=== PATIENT | male | born 1950 | race Caucasian/White ===

== ENCOUNTER 2024-12-22 14:20 | Outpatient (REF) | payer MEDICARE, SELFPAY ==
[2024-12-22 16:03] LABS: Abs Immature Grans 0.24 10^3/uL (0.0-0.06); HCT 26.3 % (40.0-50.0); HGB 8.6 g/dL (13.5-17.5); Immature Grans % 2.4 %; MCH 32.2 pg (27.0-33.0); MCHC 32.7 % (32.0-36.0); MCV 99 fL (80-95); MPV 9.8 fL (8.0-11.0); Platelet Count 308 10^3/uL (130-400); RBC 2.67 10^6/uL (4.36-5.78); RDW 15.1 % (11.8-14.1); RDW-SD 53.6 fL; WBC 10.12 10^3/uL (4.4-10.8)
[2024-12-22 16:13] LABS: ALT 100 U/L (16-63); AST 97 U/L (15-37); Albumin 2.0 g/dL (3.4-5.0); Alkaline Phosphatase 125 U/L (46-116); Anion Gap 5.8 mmol/L (3-11); BUN 24 mg/dL (7-18); Bilirubin, Total 0.9 mg/dL (0.2-1.0); CO2 36.2 mmol/L (21.0-32.0); Calcium 8.3 mg/dL (8.5-10.1); Chloride 104 mmol/L (98-107); Glucose 133 mg/dL (74-106); Potassium 3.5 mmol/L (3.5-5.1); Sodium 146 mmol/L (136-145); Total Protein 5.1 g/dL (6.4-8.2)
== END 2024-12-22 14:21 | disposition home or self-care (01) ==
LOC: LBN 14:20
PROVIDERS: PCP Family Medicine; Visit Provider Nurse Practitioner Adult Health
DX: N17.9 Acute kidney failure, unspecified (principal)
CPT/HCPCS: 80053; 85025

== ENCOUNTER 2024-12-27 05:21 | Emergency (ER) | payer MEDICARE, SELFPAY ==
[2024-12-27] VITALS (10 sets, daily range): BP systolic 119–128; BP diastolic 60–72; PULSE 79–90; RESP 20; TEMP 36.8; O2SAT 95–99
--- NOTE | 2024-12-27 05:16 | ED.GENADUL_ITS ---
Discharge Plan Disposition Patient Disposition: [facility](SNF) Condition: Good Discharge Details Clinical Impression: Complication of Blanco catheter Primary Care Provider: Eitan Vásquez ED Provider: Christiana Franco Discharge Instructions Additional Instructions: Return to the emergency department for new or worsening symptoms, including worsening pain, or if the catheter is not draining after being flushed and replaced. HPI General Mode of arrival: EMS . Date/Time Provider Initiated Documentation: 12/27/24 05:37 . Limitations to Documentation: no limitations . Information obtained by: patient and old records reviewed . HPI Narrative: 74yo M presenting from [facility] for dislodged blanco catheter. He inadvertently pulled it out with the balloon inflated; had pain and bleeding afterwards. Nursing staff unable to replace blanco. He reports the pain and bleeding have both stopped. On ROS reports a mild cough for about a week, otherwise in his usual state of health. Review of Systems All systems reviewed & are unremarkable except as noted in HPI and below (Mild cough x one week) Exam Narrative Exam Narrative: General: Alert, well appearing, well nourished, in no acute distress. Head: Normocephalic, atraumatic Neck: Trachea midline, Neck supple. Cardiac: RRR Resp: No respiratory distress. CTAB. + cough Abd: Soft, non-distended, nontender : No suprapubic tenderness. Dried blood at urethral meatus. Extremities: No deformities. No peripheral edema. Medical Decision Making 74yo M presenting from [facility] for dislodged blanco catheter; nursing staff unable to replace blanco. Pain and bleeding have both stopped. Vital signs and physical exam reassuring on arrival. Scant dried blood at urethral meatus, otherwise normal exam, no suprapubic tenderness. Blanco replaced and drained yellow urine, some clots. Irrigated till clear. No indication for labs or imaging. Discharged back to nursing facility; discharge instructions and return precautions were reviewed with patient and sent to facilty. All questions were answered and he is in full agreement with the plan. PFSH All Active Problems (Updated 12/27/24 @ 05:53 by Christiana Franco MD) Complication of Blanco catheter (Acute) Social History Smoking risk assessment performed?: No
== END 2024-12-27 06:11 | disposition skilled nursing facility (03) ==
LOC: ER 05:55
PROVIDERS: Emergency Provider Student in an Organized Health Care Education/Training Program; PCP Family Medicine
DX: T83.021A Displacement of indwelling urethral catheter, initial encounter (principal)
CPT/HCPCS: 99283 ×2; 36415; 51702

== ENCOUNTER 2024-12-31 12:39 | Outpatient (REF) | payer MEDICARE, SELFPAY ==
[2024-12-31 13:46] LABS: COVID-19 PCR Negative (Negative); RSV PCR Negative (Negative)
== END 2024-12-31 12:40 | disposition home or self-care (01) ==
LOC: LBN 12:39
PROVIDERS: PCP Family Medicine; Visit Provider Nurse Practitioner Adult Health
DX: J06.9 Acute upper respiratory infection, unspecified (principal)
CPT/HCPCS: 87637

== ENCOUNTER 2025-01-13 11:24 | Outpatient (REF) | payer MEDICARE, SELFPAY ==
[2025-01-13 11:49] LABS: HCT 34.3 % (40.0-50.0); HGB 12.6 g/dL (13.5-17.5); MCH 37.6 pg (27.0-33.0); MCHC 36.7 % (32.0-36.0); MCV 102 fL (80-95); MPV 10.2 fL (8.0-11.0); Platelet Count 252 10^3/uL (130-400); RBC 3.35 10^6/uL (4.36-5.78); RDW 15.7 % (11.8-14.1); RDW-SD 59.3 fL; WBC 16.48 10^3/uL (4.4-10.8)
[2025-01-13 11:51] LABS: Glucose Negative (Negative)
[2025-01-13 12:01] LABS: RBC 20-50 HPF (0-2); WBC 20-50 HPF (0-5)
[2025-01-13 12:05] LABS: ALT 18 U/L (10-49); AST 19 U/L (<34); Albumin 3.2 g/dL (3.4-5.0); Alkaline Phosphatase 258 U/L (46-116); Anion Gap 6 mmol/L (3-11); BUN 21 mg/dL (9-23); Bilirubin, Total 0.80 mg/dL (0.2-1.2); CO2 33.0 mmol/L (20.0-31.0); Calcium 9.1 mg/dL (8.3-10.6); Chloride 102 mmol/L (98-107); Glucose 98 mg/dL (74-106); Potassium 4.0 mmol/L (3.5-5.1); Sodium 141 mmol/L (136-145); Total Protein 6.1 g/dL (5.7-8.2)
[2025-01-13 12:24] LABS: COVID-19 PCR Negative (Negative); RSV PCR Negative (Negative)
== END 2025-01-13 11:25 | disposition home or self-care (01) ==
LOC: LBN 11:24
PROVIDERS: PCP Family Medicine; Visit Provider Nurse Practitioner Adult Health
DX: R50.9 Fever, unspecified (principal); N17.9 Acute kidney failure, unspecified; J06.9 Acute upper respiratory infection, unspecified
CPT/HCPCS: 80053; 85027; 87077; 87637; 81003; 81015; 87086; 87186

== ENCOUNTER → 2025-01-22 03:50 | Outpatient (CLI) | payer MEDICARE, SELFPAY ==
--- NOTE | 2025-01-22 | DI.CT_ITS ---
Exam(s) CT CHEST/ABD/PEL W EXAM: CT CHEST/ABD/PEL W CLINICAL HISTORY: WORSENING RESP FUNCTION WITH HYPOXIA,WT LOSS,? COLON AND LUNG MALIGNANCY TECHNIQUE: Imaging Protocol: Axial computed tomography images with coronal and sagittal reformatted images were created and reviewed. Lung Computer Aided Detection (CAD) was utilized. CONTRAST MATERIAL: Intravenous: Omnipaque 350 contrast volume:75 mL Oral: Yes COMPARISON: CT CT CHEST/ABD/PELVIS W/CONTRAST from 12/09/[address] PELVIS WO CONTRAST from 12/16/2024 FINDINGS: CHEST: Tracheobronchial tree: There is some fluid seen in the right mainstem bronchus suggesting aspiration. No evidence of bronchiectasis. Pulmonary parenchyma: Moderately severe emphysematous changes are present. Moderately severe centrilobular emphysema. Worsening opacities in the dependent portions of the lungs bilaterally. This may be scarring, atelectasis or pneumonia. No pulmonary nodules are present. Visualized thyroid gland: Unremarkable. Mediastinum and Prerna: No dominant adenopathy or fluid collection. There is mild thickening of the wall of the distal esophagus. Pleura: No effusion or pneumothorax. Heart: The heart is not dilated. Coronary artery calcification is present. No pericardial effusion. Pulmonary arteries: No pulmonary emboli are identified. Aorta: Thoracic aorta non-dilated. There is no evidence of dissection. Atherosclerotic calcification is present. Lymph nodes: Within normal limits. Soft tissues: Unremarkable. Bones:Within normal limits for the patient's age. There is a solitary sclerotic focus in the tip of the right scapula. This has increased in size compared to the prior examination. ABDOMEN: Liver: Normal density. No measurable mass. Portal, Superior Mesenteric, and Splenic Veins: Unremarkable. Gallbladder and Biliary Tract: No radiodense calculus or dilation. Pancreas: Normal density, no abnormal calcifications or inflammatory process. Spleen: Normal. Adrenals: No masses seen. Kidneys: Normal size, contour and axis. No evidence of obstructive uropathy. Small right renal cysts. No follow-up is recommended. Abdominal Aorta: There is a 5.6 x 5.2 cm infrarenal abdominal aortic aneurysm. This has shown interval increase in size compared to the prior examination. Bowel: Evaluation is somewhat limited due to lack of peritoneal fat. There is stool seen throughout the colon suggesting constipation. There do appear to be diverticula in the colon consistent with diverticulosis, but no evidence of a diverticulitis is seen. There is a knuckle of cecum located within a right inguinal hernia. No evidence of obstruction/incarceration. There is no evidence of appendicitis. There is no evidence of bowel obstruction or bowel wall thickening. Peritoneal Cavity: No ascites, collection or mesenteric inflammatory response. No free air. Lymph Nodes: Within normal limits. Bones: Within normal limits for the patient's age. There is again seen a comminuted intertrochanteric fracture of the right femur with fixation by an intramedullary merle. Soft Tissues: Unremarkable. PELVIS: Bladder: There is diffuse thickening of the wall of the urinary bladder. This was not present on the examination from 12/16/2024. This may in part be due to underdistention but cystitis should be considered in this patient. Neoplastic process cannot be entirely excluded. There is an Perera catheter in place. Reproductive Organs: Unremarkable as visualized. Lymph Nodes: Within normal limits. Bones: Within normal limits. IMPRESSION: 1. Diffuse thickening of the wall of the urinary bladder. While this may in part be due to underdistention cystitis or chronic bladder outlet obstruction should be considered. Neoplasm cannot be entirely excluded. Urology consult should be considered. 2. Constipation. 3. 5.2 x 5.6 cm infrarenal abdominal aortic aneurysm. This has increased in size compared to the examination from 12/09/2022. 4. Interval placement of an intramedullary merle transfixing the intertrochanteric right femoral fracture. 5. Solitary increasing sclerotic lesion in the tip of the right scapula. Metastatic disease cannot be excluded. Bone scan should be obtained for further evaluation. 6. Worsening opacities in the dependent portion of the lungs bilaterally. This may represent scarring, atelectasis or pneumonia. A follow-up examination in 1- 2 months is recommended to evaluate for improvement. 7. Moderately severe pulmonary emphysema. 8. There is no evidence of a thoracic aortic aneurysm, dissection or pulmonary embolism. 9. Small amount of fluid in the right mainstem bronchus which can be seen with aspiration. Unexpected findings RADIATION DOSE DELIVERED: Total DLP DATA REPOSITORY: All CT scans at this facility are submitted to the National Radiology Data Registry (NRDR) Dose Index Registry (DIR) with the [employer] (A[employer]). RADIATION OPTIMIZATION: All CT scans at this facility use at least one of these dose optimization techniques: automated exposure control; mA and/or kV adjustment per patient size (includes targeted exams where dose is matched to clinical indication); or iterative reconstruction.
[2025-01-22] MEDS: Barium Sulfate 2% W/V-Berry Smoothie 450 ML BTL PO (11:19)
[2025-01-22] MEDS: Barium Sulfate 2% W/V-Creamy Vanilla Smoothie 450 ML BTL PO (11:19)
[2025-01-22] MEDS: Normal Saline - Diluent 50 ML VIAL IJ (14:23)
[2025-01-22] MEDS: Normal Saline Flush 10 ML SYR IVP (14:23)
[2025-01-22] MEDS: Omnipaque 350 MG/ML 500 ML BTL-Imaging package IJ (14:24)
== END ==
LOC: DI 03:50
PROVIDERS: PCP Family Medicine; Visit Provider Nurse Practitioner Adult Health
DX: J96.21 Acute and chronic respiratory failure with hypoxia (principal); R63.4 Abnormal weight loss; K59.00 Constipation, unspecified; R93.41 Abnormal radiologic findings on diagnostic imaging of renal pelvis, ureter, or bladder; J43.9 Emphysema, unspecified; R91.8 Other nonspecific abnormal finding of lung field
CPT/HCPCS: 74177; 71260

== ENCOUNTER 2025-01-27 11:40 | Outpatient (REF) | payer MEDICARE, SELFPAY ==
[2025-01-27 13:24] LABS: Glucose Negative (Negative)
== END 2025-01-27 11:41 | disposition home or self-care (01) ==
LOC: LBN 11:40
PROVIDERS: PCP Family Medicine; Visit Provider Nurse Practitioner Adult Health
DX: N39.0 Urinary tract infection, site not specified (principal)
CPT/HCPCS: 81003; 81015; 87086